=== PATIENT | male | born 2000 | race Caucasian/White ===

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

== ENCOUNTER 2021-12-13 20:07 | Emergency (ER) | payer SELFPAY ==
[~2021-12-13] VITALS: Ht 188 cm; Wt 142.9 kg
[~2021-12-13 20:07] MED LIST: NORCO 5-325 TA1 EACH PO
[2021-12-14] MEDS ORDERED: ONDANSETRON ODT4 MG PO (01:03)
[2021-12-14] MEDS ORDERED: CAPSAICIN42.5 GM TOP (01:03)
[2021-12-14] MEDS ORDERED: PEPCID20 MG PO (01:03)
[2021-12-14] MEDS ORDERED: MAALOX ADVANCE1 EACH PO (01:03)
--- NOTE | 2021-12-14 13:33 | EKG ---
[facility] [address] [place], [place] [address] Signed Normal sinus rhythm Normal ECG No previous ECGs available Confirmed by CHARLY JOHNSON DO ([id number]) on 12/14/2021 1:33:16 PM Electronically Signed By: CHARLY JOHNSON DO 12/14/21 1333 PATIENT NAME: TREVER AHUJA GATICA Electrocardiogram DATE OF : 89 PHYSICIAN: CHARLY JOHNSON DO REPORT #: [id number] REPORT IS CONFIDENTIAL AND NOT TO BE RELEASED WITHOUT AUTHORIZATION
== END 2021-12-14 01:11 | disposition home or self-care (01) ==
LOC: ED 20:07
DX: R10.84 Generalized abdominal pain (principal); R11.2 Nausea with vomiting, unspecified; F17.200 Nicotine dependence, unspecified, uncomplicated; E66.01 Morbid (severe) obesity due to excess calories; Z20.822 Contact with and (suspected) exposure to COVID-19
CPT/HCPCS: 71045; 81001; 83690; 83735; 84484; 85025; 93005; 93010; 96374; 96375; 96376; 99284-25; C9803; J1790; J2405